=== PATIENT | female | born 1960 | race Caucasian/White ===

== ENCOUNTER → 2020-07-11 09:51 | Outpatient (CLI) | payer BC, SELFPAY ==
[2016-05-29 16:26] VITALS: BMI 34.0
[2020-07-11 10:59] LABS: Absolute Lymphocyte Count 1.12 X10^3/uL (0.83-4.51); Absolute Neutrophil Count 2.2 X10^3/uL (2.0-7.7); Basophil# 0.02 X10^3/uL; Basophil% 0.5 % (0-1); Eosinophil# 0.16 X10^3/uL; Eosinophils% 4.1 % (0-5); Hematocrit 43.3 % (37-47); Hemoglobin 13.9 g/dL (12.0-15.0); Lymphocyte # 1.12 X10^3/ul (4.0); Mean Corp Hgb Conc 32.1 g/dL (32-36); Mean Corpuscular Hgb 30.3 pg (27.0-32.0); Mean Corpuscular Volume 94.5 fL (81-99); Mean Platelet Vol. 9.8 fl (6.2-12.0); Monocyte# 0.37 X10^3/uL; Monocyte% 9.6 % (0-10); NRBC Flagged by Analyzer 0 % (0-5); Neutrophil # 2.18 X10^3/uL (2.7-7.7); Neutrophil % 56.5 % (47-70); Platelet Count 260 K/mm3 (150-450); RBC Distribution Width CV 13.7 % (11.6-14.6); RBC Distribution Width SD 48.1 fl (35.1-43.9); Red Blood Count 4.58 M/mm3 (4.2-5.4); White Blood Count 3.9 K/mm3 (4.4-11.0)
[2020-07-11 11:29] LABS: AST(SGOT) 16 U/L (15-37); Alanine Aminotransfer ALT/SGPT 20 U/L (13-56); Albumin, Serum 3.5 g/dL (3.2-5.0); Alkaline Phosphatase 77 U/L (45-117); Anion Gap 5 (5-15); BUN 14 mg/dL (7-18); BUN/Creat Ratio 15.9 RATIO (10-20); Calcium,Total 8.8 mg/dL (8.5-10.1); Chloride 108 mmol/L (98-107); Cholesterol 261 mg/dL (200); Creatinine, Serum 0.88 mg/dL (0.55-1.02); EST Glomerular Filtration Rate 70 mL/min (>60); Est Glom Filt Rate - Afr Amer 84 mL/min (>60); Ferritin 33 ng/mL (8-252); Globulin 3.6 g/dL (2.2-4.2); Glucose 92 mg/dL (74-106); High Density Lipoprotein 72 mg/dL; Iron 59 ug/dL (50-170); Iron Binding Capacity,Total 315 ug/dL (250-450); Potassium 3.9 mmol/L (3.5-5.1); Protein, Total 7.1 g/dL (6.4-8.2); Sodium Level 139 mmol/L (136-145); Thyroid Stim Hormone (TSH) 4.19 uIU/mL (0.358-3.74); Triglycerides 69 mg/dL; Very Low Density Lipoprotein 14 mg/dL (5-40)
[2020-07-13 09:32] LABS: Vitamin D,25 Hydroxy 39.7 ng/mL
== END ==
PROVIDERS: PCP Internal Medicine; Referring Provider Internal Medicine; Visit Provider Internal Medicine
DX: E55.9 Vitamin D deficiency, unspecified (principal); D50.9 Iron deficiency anemia, unspecified; E78.5 Hyperlipidemia, unspecified
CPT/HCPCS: 36415; 80053; 80061; 82306; 82728; 83540; 83550; 84443; 85025

== ENCOUNTER → 2020-07-16 15:45 | Outpatient (CLI) | payer BC, SELFPAY ==
[2016-05-29 16:26] VITALS: BMI 34.0
--- NOTE | 2020-07-16 15:53 | BI_ITS ---
MAMMOGRAPHY - BILATERAL SCREENING REASON FOR EXAM: Female, 60 years old. Routine annual screening examination. PERTINENT HISTORY: Non-contributory. TECHNIQUE: Digital bilateral breast skinny (3D mammographic acquisition) in the CC and MLO projections. 2-D mediolateral oblique (MLO) and craniocaudad (CC) views of both breasts were obtained. CAD: Full Field Digital Mammography with Computer Added Detection was performed. COMPARISON: Comparison is made with prior examination 02/16/2012. FINDINGS: Breast Composition: The breasts are heterogeneously dense, which may obscure small masses. There are no dominant masses or suspicious calcifications. Stable appearance of the bilateral axillary lymph nodes. No other significant abnormalities are identified. There has been no significant change since the prior study. BI/SCRN MAMM (CAD)W/SKINNY BILAT IMPRESSION: Stable bilateral screening mammogram. Yearly follow-up mammogram recommended. (A) ASSESSMENT CATEGORY: BIRADS Category 2: Benign. A letter regarding these results will be sent to the patient by the facility within 30 days. Approximately 10% of breast cancers are not detected by mammography. A normal mammogram should not delay biopsy of a clinically suspicious abnormality. [id number] Electronically Signed: Barron Crandall MD at 8:39 EDT , Service support ,
--- NOTE | 2020-07-16 15:55 | BD_ITS ---
STUDY: DUAL ENERGY X-RAY ABSORPTIOMETRY / DXA REASON FOR EXAM: Female, 60 years old. 627.8Menopausal post menopausal BONE DENSITY REASON FOR EXAM TECHNIQUE: Bone Mineral Density (BMD) measurements of lumbar spine and bilateral hips were obtained. COMPARISON: None. FINDINGS: Lumbar Spine (L1-L4): g/cm2 (1.108) / T-score (-0.6) / Z-score (0.6) Findings are suggestive of normal bone density with a low fracture risk. Left Femur Total: g/cm2 (0.914) / T-score (-0.7) / Z-score (0.2) Left Femoral Neck: g/cm2 (0.813) / T-score (-1.6) / Z-score (-0.4) Right Femur Total: g/cm2 (0.897) / T-score (-0.9) / Z-score (0.1) Right Femoral Neck: g/cm2 (0.779) / T-score (-1.9) / Z-score (-0.6) BD/Dexa Bone Density Study IMPRESSION: The patient is considered osteopenic as outlined below according to World Maximiliano Organization (WHO) criteria with a moderate fracture risk. Reference Information: The T-score is the number of standard deviations above or below the standard which is normal for young adults at their peak bone mineral density. The World Health Organization (WHO) interprets the T-scores as follows: Above -1 Normal bone density Between -1 and -2.5 Osteopenia Equal to / or below -2.5 Osteoporosis As a practical clinical guideline, osteopenia may be graded as follows: Mild -1 through -1.5 Moderate -1.6 through -2.0 Severe -2.1 through -2.4 The Z-score is the number of standard deviations above or below age-matched controls. A Z-score of less than -1.5 would be considered abnormal. References: 1. NIH Osteoporosis and Related Bone Diseases www osteo.org 2. International Society for Clinical Densitometry www iscd.org 3. National Osteoporosis Foundation www nof.org Electronically Signed: Barron Crandall MD at 13:12 EDT , Service support ,
== END ==
PROVIDERS: PCP Internal Medicine; Referring Provider Internal Medicine; Visit Provider Internal Medicine
DX: Z78.0 Asymptomatic menopausal state (principal); Z12.31 Encounter for screening mammogram for malignant neoplasm of breast
CPT/HCPCS: 77063; 77067; 77080

== ENCOUNTER 2020-12-30 05:49 | Day surgery (SDC) | payer BC, SELFPAY ==
[2020-12-30] VITALS (7 sets, daily range): BP systolic 103–141; BP diastolic 54–81; PULSE 64–84; RESP 16–18; TEMP 35.7–36.4; O2SAT 95–100; BMI 34.1
--- NOTE | 2020-12-30 | IMM_PTH ---
PATIENT: ROGER KITCHEN LOC: EN U#:[id number] AGE/SX: 60/F ROOM: RE12/30/[address]: Dr. Naima Iyer MD : 1960 BED: DIS: 12/30/2020 SPEC #: [id number] RECD: 12/30/20 14:00 STATUS: FABRICIO REQ #: [id number] YOLA: 12/30/20 00:[address]: Naima Iyer DEPT: IMMUNOHISTOCHEMISTRY RECD BY: Selina Sheppard ENTERED: 12/30/20 14:00 SP TYPE: IMMUNO OTHR DR: Dr. Leatha Dejesus, DO Tissues: Gastric mucous membrane Procedures: H Pylori (initial) PHYSICIAN & INSTITUTION [place] [address] SPECIMEN INFORMATION: Tissue Source: Antrum biopsy Clinical Info: Screening for colon cancer, GERD Specimen Number: [id number] CPT code: 65390 METHODOLOGY: Deparaffinized sections of prefer/formalin-fixed tissue or PAP/DQ stained slides are incubated with monoclonal/polyclonal antibodies/oligonucleotide probes. Localization is made via biotin free immunoperoxidase method. Appropriate controls are performed and reacted as expected. Results on target cell population are indicated in the following table: RESULTS: ANTIBODY / CLONE RESULT H Pylori (polyclonal) negative These tests were developed and their performance characteristics determined by [facility]. They may not have been cleared or approved by the U.S. Food and Drug Administration. The FDA has determined that such clearance or approval is not necessary. The above immunohistochemical/dualISH markers are ordered and reviewed by the Pathologist. INTERPRETATION: Gastric antrum, biopsy: Negative for Helicobacter pylori organisms. AM:leticia 12/31/20
[2020-12-30] MEDS: Lactated Ringers 1,000 ML 100 ML IV (06:15)
--- NOTE | 2020-12-30 06:31 | HP.PCM_ITS ---
History and Physical Date of Admission: 12/30/20 Date of Service: 12/22/20 Intake Vital Signs 12/22/20 14:09 Height 5 ft 5 in Weight: 168 lb 4 oz BMI 28.0 BP 143/83 H Blood Pressure Location Rt brachial Position Sitting Respiration 18 Pulse 63 Pulse Source Monitor Temp 97.6 F L Temp Source Temporal Pulse Oximetry (%) 96 Oxygen Delivery Method room air Intake Visit Reasons: CHANGE BOWEL HABITS, CSCOPE Chief Complaint: EGD/C-Scope Chiropractic Assistant Required: No Is patient in pain?: No Allergies Sulfa (Sulfonamide Antibiotics) Adverse Reaction (Verified 12/22/20 14:12) Upset Stomach Medications meclizine 25 mg PO TID PRN PRN #20 tab 05/29/16 [Rx Confirmed 12/22/20] ondansetron 8 mg PO Q8H PRN PRN #10 tab 05/29/16 [Rx Confirmed 12/22/20] PFSH Medical History (Updated 12/22/20 @ 14:[address] Naima Iyer MD) Blood in stool Depression with anxiety GERD (gastroesophageal reflux disease) Hemorrhoids Surgical History (Updated 12/22/20 @ 14:08 by Karin Del Valle) History of endometrial ablation History of tubal ligation Social History (Updated 12/22/20 @ 14:09 by Karin Del Valle) Smoking Status: Never smoker alcohol intake: never substance use type: does not use HPI HPI HPI: ROGER KITCHEN, is a 60 F who presents to the office today for EGD and colonoscopy. Patient states that she had a colonoscopy over 10 years ago was normal also had EGD at that time was diagnosed with reflux was previously on PPI patient states she came off her PPI as she started having issues with her creatinine labs unsure exactly how high or how much of a change there was. Patient decided to do the FODMAP diet also recently started at new herbal medication supposed to help with digestion. When patient started the new herbal she had diarrhea and some bright red blood per rectum patient does have hemorrhoids but denied them being irritated. Patient states she had 1 day of bright red blood per rectum. Patient is continued on this herbal medication and has had bowel movements daily does state that she feels like she could still go a little more and this was not the case prior to starting this herbal. Patient states that she would have increased acid reflux more recently along with some bad breath. Patient states she was previously checked for celiac she was also told that she had mass in her stomach during her last EGD that was biopsied and was okay. I do not currently have the last EGD report. Patient was curious if she could be tested for alpha galactosidase as her FODMAP diet suggests this could be in issue. ROS General General: Yes fatigue; No weight change, appetite, colon cancer, breast cancer or weakness HEENT HEENT: No difficulty swallowing, eye injury, eye surgery, swollen glands or hoarseness Endo Endocrine: No thyroid disease, diabetes mellitus, thyroid cancer, Hair loss, heat intolerance or cold intolerance Skin Skin: No rash or changing moles Breast Breast: No left breast lump, right breast lump, nipple discharge, breast pain, abnormal mammogram, abnormal US or breast enlargement Musc Musculoskeletal: No back problems, arthritis, rheumatoid arthritis, gout or joint pain Cardio Cardiovascular: No murmur, pacemaker, heart disease, atrial fibrillation, high blood pressure, heart attack, heart stent, palpitations, shortness of breat with exertion or chest pain Psych Psychiatric: Yes depression and anxiety; No hearing voices Resp Respiratory: No shortness of breath, No sleep apnea, No cough, No COPD, No asthma, No emphysema and No wheezing Gastro Gastrointestinal: Yes abdominal pain, Yes nausea or vomiting, No diarrhea, No constipation, Yes blood in stool, Yes acid reflux, Yes hemorrhoids, No ulcers, No gallbladder problem and No black,tarry stools George Hematologic: No blood thinners, No blood disorders, No bleeding, No anemia and No blood clots Neuro Neurologic: No system reviewed and no additional complaints, except as documented, No as per HPI, No abnormal gait, No abnormal hearing, No abnormal movements, No abnormal speech, No behavioral changes, No burning sensations, No confusion, No convulsions, No disequilibrium, No dizziness, No localized weak ness, No frequent falls, No headache(s), No lack of coordination, No loss of vision, No memory loss, No numbness, No other visual disturbances, No radicular pain, No restless legs, No sensory deficit, No syncope, No tingling, No tremor(s), No weakness and No other Exam Const General: cooperative, healthy appearing, comfortable and no acute distress Neck Neck: normal visual inspection Resp Effort & Inspection: normal respiratory effort Cardio Rate: regular rate GI Inspection: non-distended Palpation: soft, no guarding and nontender Skin General: no rashes or lesions noted Neuro General: patient oriented x3 Psych Affect: normal affect COVID (Procedure Consent) Procedure Criteria Procedure Criteria: Yes Elective The surgeon/proceduralist and patient have discussed in detail the risk of exposure to and/or potential harm posed by the COVID-19 virus with having a surgery/procedure at this time versus the risk of delaying the surgery/procedure. It is not possible to know either the risk of delaying the surgery or procedure or chance of getting an infection with perfect accuracy, but a joint decision was made between the patient and the surgeon/proceduralist to proceed at this time with the scheduled surgery/procedure as indicated on the consent form. Assessment and Plan Assessment and Plan (1) Screening for colon cancer: Status: Acute (2) GERD (gastroesophageal reflux disease): Status: Acute Plan - Dr. Naima Iyer MD: Did discuss with patient I am not sure if the herbal medication could be contributed to the feeling of not emptying completely has only started after taking this and she did initially have the diarrhea and bright red blood x1 day. Discussed with patient that I do not typically recommend herbals. Also discussed that if I did see gastritis or reflux I would be recommending a PPI again. I have discussed the above with the patient. I have offered the patient EGD and colonoscopy for evaluation. I have explained the risks/benefits of the procedure and described the procedure. I have discussed the risks with the patient, including but not limited to: infection, bleeding, perforation of the GI tract requiring emergency surgery, inability to complete the procedure, injury to any internal organs, complications of anesthesia, etc. - the patient understands and agrees to proceed. I have answered all the patient's questions to the patient's satisfaction and the patient has no further questions. The patient has been given instructions for the colon cleansing preparation. 1 day of clears, MiraLAX Dulcolax split prep. Addendum: Patient's last EGD report from Dr. Toney's office from 03/2013 showed chronic acid reflux symptoms and patient had significant esophagitis with ulcerations and erosions in the esophageal mucosa. Patient was placed back on her PPI twice daily at that time. Naima Iyer M.D. Pager: [phone] [facility] [address] [place] [address], [facility], [address] [place] [address] Office: [phone] Plan Details Other Orders: Orders: Colonoscopy Today EGD Today Coding Level of Care Code Off vis,new,level 3 Diagnoses Screening for colon cancer Z12.11 GERD (gastroesophageal reflux disease) K21.9 12/22/20 1555<Electronically signed by Naima Iyer MD>Date Naima Iyer MD
--- NOTE | 2020-12-30 07:30 | EGD_PTH ---
PATIENT: ROGER KITCHEN LOC: EN U#:[id number] AGE/SX: 60/F ROOM: RE12/30/[address]: Dr. Naima Iyer MD : 1960 BED: DIS: 12/30/2020 SPEC #: [id number] RECD: 12/30/20 11:11 STATUS: FABRICIO REQ #: [id number] YOLA: 12/30/20 07:[address]: Naima Iyer DEPT: SURGICAL PATHOLOGY RECD BY: Lori Ness ENTERED: 12/30/20 12:57 SP TYPE: EGD BIOPSY OT DR: Dr. Leatha Dejesus DO Tissues: A - Gastric mucous membrane B - Gastric mucous membrane C - Stomach, NOS Procedures: Surgery Specimen Level IV HEADER OPERATION: Colonoscopy, [place] [place] PRE-OP DIAGNOSIS: Screening for colon cancer, GERD TISSUE SUBMITTED: A. Antrum biopsy, B. Biopsy of gastric polyps, C. Biopsy of GE junction MICROSCOPIC DIAGNOSIS A. Gastric antrum, biopsy: Chronic gastritis B. Gastric polyps, biopsy: Fundic gland polyps. C. GE junction, biopsy: Mild chronic inflammation. Focal changes of reflux. No evidence of goblet cell metaplasia. AM:ana 12/31/20 COMMENT A. Immunohistochemistry for H. pylori ([id number]) will be reported separately. C.AB/PAS stain with matched control is negative for goblet cells. MICROSCOPIC DESCRIPTION Slides are reviewed. GROSS DESCRIPTION A. Received is one container labeled with the patient name and designated antrum biopsy. The specimen consists of one irregular fragment of light liao soft tissue that measures 0.3 x 0.2 x 0.1cm. The specimen is totally submitted in one cassette. B. Received is one container labeled with the patient name and designated gastric polyps. The specimen consists of multiple irregular fragments of light liao soft tissue that together measure 1.0 x 0.5 x 0.1 cm. The specimen is totally submitted in one cassette. C. Received is one container labeled with the patient name and designated GE junction. The specimen consists of multiple irregular fragments of light liao soft tissue that together measure 0.8 x 0.5 x 0.1cm. The specimen is totally submitted in one cassette. /AM:am 12/30/20 TC:3 CPT:34430k8, 43048
--- NOTE | 2020-12-30 07:43 | OP.EGD_ITS ---
Patient Name: Rosa Llanos Procedure Date: 12/30/2020 6:56 AM Date of : 1960 Age: 60 Procedure: Upper GI endoscopy Indications: Gastro-esophageal reflux disease Providers: Naima Iyer MD Medicines: Monitored Anesthesia Care Patient Profile: This is a 60 year old female. Complications: No immediate complications. Procedure: Pre-Anesthesia Assessment: - Prior to the procedure, a History and Physical was performed, and patient medications and allergies were reviewed. The patient's tolerance of previous anesthesia was also reviewed. The risks and benefits of the procedure and the sedation options and risks were discussed with the patient. All questions were answered, and informed consent was obtained. Prior Anticoagulants: The patient has taken no previous anticoagulant or antiplatelet agents. ASA Grade Assessment: Per anesthesia. After reviewing the risks and benefits, the patient was deemed in satisfactory condition to undergo the procedure. After obtaining informed consent, the endoscope was passed under direct vision. Throughout the procedure, the patient's blood pressure, pulse, and oxygen saturations were monitored continuously. The Endoscope was introduced through the mouth, and advanced to the second part of duodenum. The upper GI endoscopy was accomplished without difficulty. The patient tolerated the procedure well. Scope In: 7:06:28 AM Scope Out: 7:14:13 AM Total Procedure Duration Time 0 hours 7 minutes 45 seconds Findings: The Z-line was irregular and was found 33 cm from the incisors. Three tongues of salmon-colored mucosa were present from 33 to 36 cm. Ulcerations were present at 33 cm. The maximum longitudinal extent of these esophageal mucosal changes was 1 cm in length. Biopsies were taken with a cold forceps for histology. Moderate inflammation was found in the gastric antrum. Biopsies were taken with a cold forceps for histology. Biopsies were taken with a cold forceps for Helicobacter pylori cultures. Multiple less than 5 mm sessile polyps with no bleeding and no stigmata of recent bleeding were found in the gastric body. The polyp was removed with a cold biopsy forceps. Resection and retrieval were complete. The examined duodenum was normal. Impression: - Z-line irregular, 33 cm from the incisors. - Colbert-colored mucosa. Biopsied. - Gastritis. Biopsied. - Multiple gastric polyps. Resected and retrieved. - Normal examined duodenum. Recommendation: - Await pathology results. - Discharge patient to home. - Resume previous diet. - Use Protonix (pantoprazole) 40 mg PO daily. - Continue present medications. Procedure Code(s): --- Professional --- 59635, PT, Esophagogastroduodenoscopy, flexible, transoral; with biopsy, single or multiple Diagnosis Code(s): --- Professional --- K22.8, Other specified diseases of esophagus K29.70, Gastritis, unspecified, without bleeding K31.7, Polyp of stomach and duodenum K21.9, Gastro-esophageal reflux disease without esophagitis CPT copyright 2017 [employer]. All rights reserved. The codes documented in this report are preliminary and upon nurse review may be revised to meet current compliance requirements. MD Naima Browne MD 12/30/2020 7:42:14 AM This report has been signed electronically. Number of Addenda: 0 Note Initiated On: 12/30/2020 6:56 AM
--- NOTE | 2020-12-30 07:43 | OP.CCLET_ITS ---
12/30/2020 Leatha Dejesus [address] [place] [address] Re : Upper GI endoscopy procedure for Rosa Llanos Dear Dr. Dejesus This procedure was performed on Wednesday, December 30, 2020. My impressions and recommendations are as follows: Impressions : - Z-line irregular, 33 cm from the incisors. - Capay-colored mucosa. Biopsied. - Gastritis. Biopsied. - Multiple gastric polyps. Resected and retrieved. - Normal examined duodenum. Recommendations : - Await pathology results. - Discharge patient to home. - Resume previous diet. - Use Protonix (pantoprazole) 40 mg PO daily. - Continue present medications. My findings are described in the full procedure note, which is enclosed. If I can be of further assistance, please feel free to contact me at Doctor phone number(s): , Work: . Sincerely, MD Naima Browne MD 12/30/2020 7:42:14 AM This report has been signed electronically.
--- NOTE | 2020-12-30 07:49 | OP.COLON_ITS ---
Patient Name: Rosa Llanos Procedure Date: 12/30/2020 7:15 AM Date of : 1960 Age: 60 Procedure: Colonoscopy Indications: Screening for colorectal malignant neoplasm Providers: Naima Iyer MD Medicines: Monitored Anesthesia Care Patient Profile: Last Colonoscopy: 10 years ago. This is a 60 year old female. Complications: No immediate complications. Procedure: Pre-Anesthesia Assessment: - Prior to the procedure, a History and Physical was performed, and patient medications and allergies were reviewed. The patient's tolerance of previous anesthesia was also reviewed. The risks and benefits of the procedure and the sedation options and risks were discussed with the patient. All questions were answered, and informed consent was obtained. Prior Anticoagulants: The patient has taken no previous anticoagulant or antiplatelet agents. ASA Grade Assessment: Per anesthesia. After reviewing the risks and benefits, the patient was deemed in satisfactory condition to undergo the procedure. After I obtained informed consent, the scope was passed under direct vision. Throughout the procedure, the patient's blood pressure, pulse, and oxygen saturations were monitored continuously. The Colonoscope was introduced through the anus and advanced to the cecum, identified by the ileocecal valve. The colonoscopy was performed without difficulty. The patient tolerated the procedure well. The quality of the bowel preparation was good except the descending colon was fair. Scope In: 7:16:29 AM Scope Withdrawal Time 0 hours 9 minutes 38 seconds Scope Out: 7:34:44 AM Total Procedure Duration Time 0 hours 18 minutes 15 seconds Findings: Hemorrhoids were found on perianal exam. Multiple small-mouthed diverticula were found in the sigmoid colon, descending colon, transverse colon and ascending colon. External and internal hemorrhoids were found. The hemorrhoids were Grade I (internal hemorrhoids that do not prolapse). Impression: - Hemorrhoids found on perianal exam. - Diverticulosis in the sigmoid colon, in the descending colon, in the transverse colon and in the ascending colon. - External and internal hemorrhoids. - No specimens collected. Recommendation: - Repeat colonoscopy in 8 years for screening purposes. - Continue present medications. Procedure Code(s): --- Professional --- 56549, PT, Colonoscopy, flexible; diagnostic, including collection of specimen(s) by brushing or washing, when performed (separate procedure) Diagnosis Code(s): --- Professional --- Z12.11, Encounter for screening for malignant neoplasm of colon K64.0, First degree hemorrhoids K57.30, Diverticulosis of large intestine without perforation or abscess without bleeding CPT copyright 2017 [employer]. All rights reserved. The codes documented in this report are preliminary and upon label coder review may be revised to meet current compliance requirements. MD Naima Browne MD 12/30/2020 7:49:06 AM This report has been signed electronically. Number of Addenda: 0 Note Initiated On: 12/30/2020 7:15 AM
--- NOTE | 2020-12-30 07:50 | OP.CCLET_ITS ---
12/30/2020 Leatha Dejesus [address] [place] [address] Re : Colonoscopy procedure for Rosa Viet Dear Dr. Dejesus This procedure was performed on Wednesday, December 30, 2020. My impressions and recommendations are as follows: Impressions : - Hemorrhoids found on perianal exam. - Diverticulosis in the sigmoid colon, in the descending colon, in the transverse colon and in the ascending colon. - External and internal hemorrhoids. - No specimens collected. Recommendations : - Repeat colonoscopy in 8 years for screening purposes. - Continue present medications. My findings are described in the full procedure note, which is enclosed. If I can be of further assistance, please feel free to contact me at Doctor phone number(s): , Work: . Sincerely, MD Naima Browne MD 12/30/2020 7:49:06 AM This report has been signed electronically.
== END 2020-12-30 08:37 | disposition home or self-care (01) ==
LOC: EN 05:51 → AC 05:51
PROVIDERS: PCP Internal Medicine; Referring Provider Internal Medicine; Visit Provider Surgery
PROC: 0DJD8ZZ Inspection of Lower Intestinal Tract, Via Natural or Artificial Opening Endoscopic (ICD-10-PCS; CPT 45378; principal; 2020-12-30 07:25)
DX: Z12.11 Encounter for screening for malignant neoplasm of colon (principal); K64.0 First degree hemorrhoids; K57.30 Diverticulosis of large intestine without perforation or abscess without bleeding; K22.8 Other specified diseases of esophagus; K29.50 Unspecified chronic gastritis without bleeding; K31.7 Polyp of stomach and duodenum; K21.9 Gastro-esophageal reflux disease without esophagitis
CPT/HCPCS: 43239; 45378; 87426; 88305; 88342; J7120; J2405

== ENCOUNTER → 2024-01-13 | Outpatient (CLI) | payer BC, SELFPAY ==
[2024-01-13 11:09] LABS: Absolute Lymphocyte Count 1.31 X10^3/uL (0.83-4.51); Absolute Neutrophil Count 2.3 X10^3/uL (2.0-7.7); Basophil# 0.03 X10^3/uL; Basophil% 0.7 % (0-1); Eosinophil# 0.15 X10^3/uL; Eosinophils% 3.6 % (0-5); Hematocrit 41.5 % (37-47); Hemoglobin 13.5 g/dL (12.0-15.0); Lymphocyte # 1.31 X10^3/ul (0.83-4.51); Lymphocyte % 31.7 % (19-41); Mean Corp Hgb Conc 32.5 g/dL (32-36); Mean Corpuscular Hgb 31.8 pg (27.0-32.0); Mean Corpuscular Volume 97.6 fL (81-99); Monocyte# 0.37 X10^3/uL; NRBC Flagged by Analyzer 0 % (0-5); Neutrophil # 2.26 X10^3/uL (2.7-7.7); Neutrophil % 54.8 % (47-70); Platelet Count 228 K/mm3 (150-450); RBC Distribution Width CV 13.7 % (11.6-14.6); RBC Distribution Width SD 49.1 fl (35.1-43.9); Red Blood Count 4.25 M/mm3 (4.2-5.4); White Blood Count 4.1 K/mm3 (4.4-11.0)
[2024-01-13 11:40] LABS: ALB/GLOB Ratio 1.1 RATIO (0.9-2.4); AST(SGOT) 17 U/L (15-37); Alanine Aminotransfer ALT/SGPT 18 U/L (13-56); Albumin, Serum 3.7 g/dL (3.2-5.0); Alkaline Phosphatase 96 U/L (45-117); Anion Gap 5 (5-15); BUN 14 mg/dL (7-18); BUN/Creat Ratio 13.6 RATIO (10-20); Calcium,Total 9.4 mg/dL (8.5-10.1); Chloride 107 mmol/L (98-107); Cholesterol 236 mg/dL (200); Creatinine, Serum 1.03 mg/dL (0.55-1.02); EST Glomerular Filtration Rate 57 mL/min (>60); Est Glom Filt Rate - Afr Amer 69 mL/min (>60); Ferritin 98 ng/mL (8-252); Globulin 3.3 g/dL (2.2-4.2); Glucose 97 mg/dL (74-106); High Density Lipoprotein 65 mg/dL; Iron 68 ug/dL (50-170); Iron Binding Capacity,Total 291 ug/dL (250-450); PERCENT IRON SATURATION 23.4 % (15.0-55.0); Potassium 4.3 mmol/L (3.5-5.1); Sodium Level 139 mmol/L (136-145); Triglycerides 70 mg/dL; Very Low Density Lipoprotein 14 mg/dL (5-40)
[2024-01-15 08:22] LABS: Vitamin D,25 Hydroxy 63.3 ng/mL
== END | disposition home or self-care (01) ==
LOC: LAB 10:46
PROVIDERS: PCP Internal Medicine; Referring Provider Internal Medicine; Visit Provider Internal Medicine
DX: D50.9 Iron deficiency anemia, unspecified (principal); E55.9 Vitamin D deficiency, unspecified; E78.5 Hyperlipidemia, unspecified
CPT/HCPCS: 36415; 80053; 80061; 82306; 82728; 83540; 83550; 85025

== ENCOUNTER 2024-03-06 07:18 | Day surgery (SDC) | payer BC, SELFPAY ==
[2024-03-06] VITALS (8 sets, daily range): BP systolic 93–145; BP diastolic 60–81; PULSE 70–80; RESP 16; TEMP 35.8–36.2; O2SAT 90–100; BMI 32.4
--- NOTE | 2024-03-06 07:34 | PCM.PRE.AN2 ---
ASA Classification* ASA Classification ASA Classification: 2 Assessment & Plan Anesthesia* Anesthesia Assessment Anesthesia Assessment: Discussed sedation and/or anesthesia options, risks, benefits, and alternatives with patient/parents/legal guardian/POA. Questions invited. The patient/parents/legal guardian/POA seems to understand and agrees to proceed with anesthesia plan. Reviewed the physical assessment, medical history, allergy history and patient home medications list prior to surgery/procedure/anesthetic and documented any changes. Performed airway and anesthesia risk assessments. Anesthesia Type Anesthesia Type: MAC Anesthesia Focused Assessment* Temperature: 97.1 F Pulse Rate: 70 Blood Pressure: 145/81 Respiratory Rate: 16 Pulse Ox: 100 Airway Assessment Mouth opens: >3 cm Mallampati Score: II Focused Labs Anesthesia Preop lab: CBC WBC 4.1 K/mm3 (4.4-11.0) L 01/13/24 10:55 RBC 4.25 M/mm3 (4.2-5.4) 01/13/24 10:55 Hgb 13.5 g/dL (12.0-15.0) 01/13/24 10:55 Hct 41.5 % (37-47) 01/13/24 10:55 Plt Count 228 K/mm3 (150-450) 01/13/24 10:55 CHEMISTRY Potassium 4.3 mmol/L (3.5-5.1) 01/13/24 10:55 Sodium 139 mmol/L (136-145) 01/13/24 10:55 BUN 14 mg/dL (7-18) 01/13/24 10:55 Creatinine 1.03 mg/dL (0.55-1.02) H 01/13/24 10:55 Glucose 97 mg/dL (74-106) 01/13/24 10:55 TSH 4.19 uIU/mL (0.358-3.74) H 07/11/20 10:05 COAG Pre-Assessment Diagnosis/Proposed Procedure Planned Operative Procedure(s): EGD Anesthesia History 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 When Was Last Pacemaker Check QUESTION #4 FULL TEXT: You/Your Family Experience fever (hyperthermia) with Anesthesia Last Oral Intake Last Oral intake: Last Oral Intake NPO since 06:00 03/06/24 07:31 Meds taken in AM with sips of water? 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 Female Yes 03/04/24 10:08 HX of Motion Sickness Yes 03/04/24 10:08 HX of N/V After Surgery No 03/04/24 10:08 Non-Smoker Yes 03/04/24 10:08 Duration of Surgery greater No 03/04/24 10:08 than 60 minutes Number of Risk Factors 3 03/04/24 10:08 PONV Score Moderate Risk 03/04/24 10:08 Height & Weight Height & Weight: Anesthesia: Height & Weight Height 5 ft 03/06/24 07:31 Weight: 75.296 kg 03/06/24 07:31 Body Mass Index (BMI) 32.4 03/06/24 07:31 Respiratory Assessment Respiratory Assessment - collections technician: Respiratory Tract Infection Hx - collections technician Hx Respiratory Tract Infection No 03/04/24 10:08 STOP Sleep Apnea STOP Sleep Apnea - collections technician: STOP Sleep Apnea - collections technician Hx Hypertension No 03/04/24 10:08 Hx Sleep Apnea No 03/04/24 10:08 CPAP BIPAP Do you snore loudly (louder Yes 03/04/24 10:08 than talking or can be heard Do you often feel tired/ No 03/04/24 10:08 fatigued/ sleepy during daytime? Has anyone observed you stop No 03/04/24 10:08 breathing during sleep? STOP Results Negative 03/04/24 10:08 QUESTION #5 FULL TEXT : Do you snore loudly (louder than talking or can be heard through closed doors)? 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 Specify any problems Hx of Preganancy in last 3 No 03/04/24 10:08 Months Nurse Filling Out Transfusion DSCHRIBER 03/04/24 10:08 & Questions: Date: 03/04/24 03/04/24 10:08 Time: 10:10 03/04/24 10:08 Patient unable to answer at this time (ie. confused, unrespo /Reproduction History /Reproductive History - collections technician: /Reproductive Hx- collections technician Hx Now No 03/04/24 10:08 Gestational Age (in weeks): EDC: Hx Hx Para Hx Section SAB No 03/04/24 10:08 PFSH Medical History Anemia Migraine headache History of ulceration History of pain when walking Hx of gastritis Wears glasses Anxiety High cholesterol Back pain Dietary restriction Gastric reflux Non-smoker History of edema Blood in stool Hemorrhoids Depression with anxiety GERD (gastroesophageal reflux disease) Home Medications ?Medication ?Instructions ?Recorded ?Last Taken ?Type ascorbic acid 125 mg-collagen, 1 cap PO DAILY 12/29/20 Unknown History hydrolyzed 740 mg capsule (Collagen Plus Vitamin C) cholecalciferol (vitamin D3) 125 125 mcg PO DAILY 12/29/20 Unknown History mcg (5,000 unit) tablet (Vitamin D3) digestive enzymes 1 cap PO DAILY 12/29/20 Unknown History magnesium 100 mg capsule 100 mg PO DAILY 12/29/20 Unknown History zinc 25 mg tablet 30 mg PO DAILY 12/29/20 Unknown History omeprazole 40 mg capsule,delayed 40 mg PO QDAY #30 caps 12/29/23 03/06/24 Rx release BURBERINE 2 - 3 cap PO DAILY 03/04/24 Unknown History Lactobacillus acidophilus 250 500 mmu cells PO DAILY 03/04/24 Unknown History million cell capsule (Probiotic Acidophilus) Allergy/AdvReac Type Severity Reaction Status Date / Time Sulfa (Sulfonamide AdvReac Upset Verified 03/06/24 07:30 Antibiotics) Stomach Surgical History History of esophagogastroduodenoscopy (EGD) History of endometrial ablation History of tubal ligation Social History Smoking Status: Never smoker alcohol intake: never substance use type: does not use Review of Systems (Anesthesia) ROS Narrative System reviewed and no additional complaints, except as documented.
--- NOTE | 2024-03-06 07:40 | HP.PCM_ITS ---
HPI - General General Date of Service: 03/06/24 HPI Narrative ROGER KITCHEN, is a 63 F who presents for an EGD. Patient did change to omeprazole since the last office visit. Patient states her symptoms are much improved does states she does have some discomfort with certain foods. 12/29/23 office visit HPI HPI: 63-year-old female presents due to GERD. Patient states she has noticed her breath being more foul for the last year. Patient's PCP did try a new GERD medication Voquezna however patient states she had increased constipation from this and stopped and did go back to pantoprazole. Patient denies any change with her breath on the new medication that she was on for about a week. Patient denies any epigastric pain or nausea. Patient's last EGD and colonoscopy was 12/2020. Patient has chronic gastritis at that time per biopsy and inflammation of the GE junction and fundic gland polyps on the EGD. [facility] Medical History Anemia Migraine headache History of ulceration History of pain when walking Hx of gastritis Wears glasses Anxiety High cholesterol Back pain Dietary restriction Gastric reflux Non-smoker History of edema Blood in stool Hemorrhoids Depression with anxiety GERD (gastroesophageal reflux disease) Home Medications ?Medication ?Instructions ?Recorded ?Last Taken ?Type ascorbic acid 125 mg-collagen, 1 cap PO DAILY 12/29/20 Unknown History hydrolyzed 740 mg capsule (Collagen Plus Vitamin C) cholecalciferol (vitamin D3) 125 125 mcg PO DAILY 12/29/20 Unknown History mcg (5,000 unit) tablet (Vitamin D3) digestive enzymes 1 cap PO DAILY 12/29/20 Unknown History magnesium 100 mg capsule 100 mg PO DAILY 12/29/20 Unknown History zinc 25 mg tablet 30 mg PO DAILY 12/29/20 Unknown History omeprazole 40 mg capsule,delayed 40 mg PO QDAY #30 caps 12/29/23 03/06/24 Rx release BURBERINE 2 - 3 cap PO DAILY 03/04/24 Unknown History Lactobacillus acidophilus 250 500 mmu cells PO DAILY 03/04/24 Unknown History million cell capsule (Probiotic Acidophilus) Allergy/AdvReac Type Severity Reaction Status Date / Time Sulfa (Sulfonamide AdvReac Upset Verified 03/06/24 07:30 Antibiotics) Stomach Surgical History History of esophagogastroduodenoscopy (EGD) History of endometrial ablation History of tubal ligation Social History Smoking Status: Never smoker alcohol intake: never substance use type: does not use Past Medical/Surgical History Planned Operation Planned Operative Procedure(s): EGD Previous Hospitalizations/Surgeries HX Hospitalizations: No Any Problems With Anesthesia: No You/Your Family Experience Fever (Hyperthermia) With Anes: No Cholinesterase deficiency: No Cardiovascular Hx Hypertension: No Respiratory Hx Sleep Apnea: No Hx Respiratory Tract Infection/Cold (presently): No Do You Snore Loudly (louder than talking or can be heard): Yes Do You Often Feel Tired/ Fatigued/ Sleepy Dring Daytime?: No Has Anyone Observed You Stop Breathing During Sleep?: No Result (for STOP score): Negative Smoking Status: Never smoker Neurological Does patient have nerve stimulator: No Reproduction : No Miscellaneous Recent Exposure to Contagious Disease: No Allergies Sulfa (Sulfonamide Antibiotics) Adverse Reaction (Verified 03/06/24 07:30) Upset Stomach Discharge Is Pt Admitted From a Long Term, or a Fdc: No After D/C, Where Do you Plan to Go: Return Home Vital Signs Vital Signs Vital Signs: 03/06/24 07:31 03/06/24 07:31 03/06/24 07:35 Temperature 97.1 F L 97.1 F L Temperature Source Temporal Pulse Rate 70 70 Respiratory Rate 16 16 Respiratory Pattern Normal Blood Pressure 145/81 H 145/81 H Blood Pressure Mean 102 Blood Pressure Source Monitor Blood Pressure Position Semi-Fowlers Blood Pressure Location Right Arm Pulse Ox 100 100 Oxygen Delivery Method Room Air Weight Weight: 166 lb Body Mass Index (BMI) 32.4 Physical Exam Const alert, oriented x3 and no apparent distress HEENT normocephalic and head/scalp atraumatic Resp normal respiratory effort Cardio regular rate GI soft to palpation and non-tender; Negative for non-distended Palpation: Negative for guarding Extremity no clubbing, cyanosis or edema Skin no rashes or lesions noted Neuro CN's II-XII intact bilaterally Psych mental status grossly normal Assessment & Plan Assessment/Plan (1) GERD (gastroesophageal reflux disease): Surgery Risks - Colonoscopy I discussed with the patient the risks of the procedure: Yes Risks Include but are not Limited To: Plan for an EGD risks include but are not limited to: Bleeding, perforation requiring further surgery
--- NOTE | 2024-03-06 08:22 | OP.CCLET_ITS ---
03/06/2024 Leatha Dejesus [address] [place] [address] Re : Upper GI endoscopy procedure for Rosa Llanos Dear Dr. Dejesus This procedure was performed on Wednesday, March 06, 2024. My impressions and recommendations are as follows: Impressions : - LA Grade D esophagitis with no bleeding. Biopsied. - Erythematous mucosa in the antrum. Biopsied. - Multiple gastric polyps. Resected and retrieved. - Normal examined duodenum. Recommendations : - Discharge patient to home. - Resume previous diet. - Continue present medications. - Await pathology results. - Use sucralfate tablets 1 gram PO QID for 1 month. My findings are described in the full procedure note, which is enclosed. If I can be of further assistance, please feel free to contact me at Doctor phone number(s): , Work: . Sincerely, MD Naima Browne MD 03/06/2024 8:21:16 AM This report has been signed electronically.
--- NOTE | 2024-03-06 08:22 | OP.EGD_ITS ---
Patient Name: Rosa Lalnos Procedure Date: 03/06/2024 7:43 AM Date of : 1960 Age: 63 Procedure: Upper GI endoscopy Indications: Heartburn Providers: Naima Iyer MD Referring MD: Leatha Dejesus Medicines: Monitored Anesthesia Care Patient Profile: This is a 63 year old female. Complications: No immediate complications. Procedure: Pre-Anesthesia Assessment: - Prior to the procedure, a History and Physical was performed, and patient medications and allergies were reviewed. The patient's tolerance of previous anesthesia was also reviewed. The risks and benefits of the procedure and the sedation options and risks were discussed with the patient. All questions were answered, and informed consent was obtained. Prior Anticoagulants: The patient has taken no anticoagulant or antiplatelet agents. ASA Grade Assessment: Per anesthesia. After reviewing the risks and benefits, the patient was deemed in satisfactory condition to undergo the procedure. After obtaining informed consent, the endoscope was passed under direct vision. Throughout the procedure, the patient's blood pressure, pulse, and oxygen saturations were monitored continuously. The gastroscope was introduced through the mouth, and advanced to the second part of duodenum. The upper GI endoscopy was accomplished without difficulty. The patient tolerated the procedure well. Scope In: 8:05:43 AM Scope Out: 8:14:48 AM Total Procedure Duration Time 0 hours 9 minutes 5 seconds Findings: LA Grade D (one or more mucosal breaks involving at least 75% of esophageal circumference) esophagitis with no bleeding was found 32 to 35 cm from the incisors. Biopsies were taken with a cold forceps for histology. Striped moderately erythematous mucosa without bleeding was found in the gastric antrum. Biopsies were taken with a cold forceps for histology. Biopsies were taken with a cold forceps for Helicobacter pylori cultures. Multiple medium semi-pedunculated polyps with no bleeding and no stigmata of recent bleeding were found in the gastric body. The polyp was removed with a hot snare. Resection and retrieval were complete using a cap. The cardia and gastric fundus were normal on retroflexion. The examined duodenum was normal. Impression: - LA Grade D esophagitis with no bleeding. Biopsied. - Erythematous mucosa in the antrum. Biopsied. - Multiple gastric polyps. Resected and retrieved. - Normal examined duodenum. Recommendation: - Discharge patient to home. - Resume previous diet. - Continue present medications. - Await pathology results. - Use sucralfate tablets 1 gram PO QID for 1 month. Procedure Code(s): --- Professional --- 12614, Esophagogastroduodenoscopy, flexible, transoral; with removal of tumor(s), polyp(s), or other lesion(s) by snare technique Diagnosis Code(s): --- Professional --- K20.90, Esophagitis, unspecified without bleeding K31.89, Other diseases of stomach and duodenum K31.7, Polyp of stomach and duodenum R12, Heartburn CPT copyright 2021 [employer]. All rights reserved. The codes documented in this report are preliminary and upon adolescent coordinator review may be revised to meet current compliance requirements. MD Naima Browne MD 03/06/2024 8:21:16 AM This report has been signed electronically. Number of Addenda: 0 Note Initiated On: 03/06/2024 7:43 AM
--- NOTE | 2024-03-06 08:23 | PCM.POST.ANE ---
Anesthesia: Postop Eval I Current Vital Signs Temperature: 97 F Pulse Rate: 79 Blood Pressure: 105/62 Respiratory Rate: 16 Pulse Ox: 92 Oxygen Delivery Method: Room Air Assessment Airway patent: Yes Spontaneous unlabored respirations: Yes Mental status: Asleep nausea: No Vomiting: No Anesthesia Complication: No Fluid Hydration Crystalloid volume administer (ml): 40 Total IV fluid infused: 30 Progress Note Anesthesia document: Postop Eval 1 completed: Yes
--- NOTE | 2024-03-06 08:45 | IMM_PTH ---
PATIENT: ROGER KITCHEN LOC: EN U#:[id number] AGE/SX: 63/F ROOM: RE03/06/[address]: Dr. Naima Iyer MD : 1960 BED: DIS: 03/06/2024 SPEC #: [id number] RECD: 03/06/24 13:21 STATUS: FABRICIO REQ #: [id number] YOLA: 03/06/24 08:[address]: Naima Iyer DEPT: IMMUNOHISTOCHEMISTRY RECD BY: Martin Watt ENTERED: 03/06/24 13:22 SP TYPE: IMMUNO OTHR DR: Dr. Leatha Dejesus, DO Tissues: A - Gastric mucous membrane Procedures: H Pylori (initial) PHYSICIAN & INSTITUTION [place] [address] SPECIMEN INFORMATION: Tissue Source: A- Antrum biopsy, C- Gastroesophageal junction biopsy Clinical Info: GERD Specimen Number: [id number] A, C CPT code: 58016i3,61707 METHODOLOGY: Deparaffinized sections of prefer/formalin-fixed tissue or PAP/DQ stained slides are incubated with monoclonal/polyclonal antibodies/oligonucleotide probes. Localization is made via biotin free immunoperoxidase method. Appropriate controls are performed and reacted as expected. Results on target cell population are indicated in the following table: RESULTS: ANTIBODY / CLONE RESULT Block A H Pylori (polyclonal) negative Block C P53 (DO-7) negative (null pattern) Ki-67 (30-9) positive, low These tests were developed and their performance characteristics determined by [facility]. They may not have been cleared or approved by the U.S. Food and Drug Administration. The FDA has determined that such clearance or approval is not necessary. The above immunohistochemical/dualISH markers are ordered and reviewed by the Pathologist. INTERPRETATION: A. Antrum, biopsy: Negative for Helicobacter pylori organisms. C. Gastroesophageal junction, biopsy: Negative for dysplasia. SJ. 03/08/2024
--- NOTE | 2024-03-06 08:45 | EGD_PTH ---
PATIENT: ROGER KITCHEN LOC: EN U#:[id number] AGE/SX: 63/F ROOM: RE03/06/[address]: Dr. Naima Iyer MD : 1960 BED: DIS: 03/06/2024 SPEC #: [id number] RECD: 03/06/24 11:36 STATUS: FABRICIO REKartik #: [id number] YOLA: 03/06/24 08:[address]: Naima Iyer DEPT: SURGICAL PATHOLOGY RECD BY: Selina Sheppard ENTERED: 03/06/24 11:54 SP TYPE: EGD BIOPSY MIGUELINA DR: Dr. Leatha Dejesus DO Tissues: A - Gastric mucous membrane B - Gastric mucous membrane C - Esophagus, NOS Procedures: Special Stain Group I Surgery Specimen Level IV Alcian Blue/PAS (control) HEADER OPERATION: EGD with biopsy and polypectomy PRE-OP DIAGNOSIS: GERD TISSUE SUBMITTED: A- Antrum biopsy, B- Gastric polyp, C- Gastroesophageal junction biopsy MICROSCOPIC DIAGNOSIS A. Antrum biopsy: Mild gastritis. See microscopic description and comment. B. Gastric polyp, polypectomy: Fragments of fundic gland polyp. Chronic inflammation. C. Gastroesophageal junction, biopsy: Fragments of gastroesophageal mucosa with focal intestinal metaplasia (goblet cell metaplasia), consistent with Beauchamp's esophagus. Chronic inflammation. Negative for dysplasia. See comment. 03/07/2024 COMMENT A. The results of immunohistochemistry for Helicobacter pylori will be reported separately ([id number]). C. Alcian blue/PAS stain with matched control is used in the evaluation of the specimen. Immunohistochemistry (24-) for P53 and Ki-67 will be performed and results will be reported separately. MICROSCOPIC DESCRIPTION Slides are reviewed. A. The specimen shows fragments of gastric mucosa with chronic inflammatory cell infiltrates in the lamina propria consisting of lymphocytes and plasma cells, consistent with mild chronic gastritis. Mucosal congestion and hemorrhage are also noted. GROSS DESCRIPTION A. Received in fixative is one container labeled with the patient's name and designated Antrum biopsy. The specimen consists of one irregular fragment of light liao soft tissue that measures 0.3 x 0.3 x 0.1 cm. The specimen is totally submitted in one cassette. B. Received in fixative is one container labeled with the patient's name and designated Gastric polyps. The specimen consists of two liao-pink polyps measuring 0.8 x 0.5 x 0.5cm and 0.6 x 0.5 x 0.5cm. Both polyps are bisected. The entire specimen is submitted in one cassette. C. Received in fixative is one container labeled with the patient's name and designated GE junction biopsy. The specimen consists of multiple irregular fragments of light liao soft tissue that in aggregate measure 1.0 x 0.3 x 0.1 cm. The specimen is totally submitted in one cassette. SJ 03/06/2024 TC:5 CPT:00821b1, [id number]
--- NOTE | 2024-03-06 09:23 | PCM.POSTANE2 ---
Anesthesia Postop Eval I Sum Postop Eval Completion status Anesthesia document: Postop Eval 1 completed: Yes Anesthesia Postop Eval I Summary Anesthesia Postop Eval I Summary: Anesthesia Postop Eval I: Assessment Summary Airway patent Yes 03/06/24 08:24 [email or web address] Spontaneous unlabored Yes 03/06/24 08:24 [email or web address] respirations Mental status Asleep 03/06/24 08:24 [email or web address] nausea No 03/06/24 08:24 [email or web address] Vomiting No 03/06/24 08:24 [email or web address] Anesthesia Postop Eval I: Fluid Summary Crystalloid volume administer 40 03/06/24 08:24 [email or web address] (ml) Colloids volume administered ( ml) Blood Product volume administered (ml) Total IV fluid infused 30 03/06/24 08:24 [email or web address] Anesthesia Postop Eval I: Summary Notes Anesthesia Complication No 03/06/24 08:24 [email or web address] Anesthesia Complication Comment: Post-operative progress note Anesthesia: Postop Eval II Evaluation Mental status: Awake Pain Level: 0 nausea: No Vomiting: No
== END 2024-03-06 09:29 | disposition home or self-care (01) ==
LOC: EN 07:18 → AC 07:19
PROVIDERS: PCP Internal Medicine; Referring Provider Internal Medicine; Visit Provider Surgery
PROC: 0DJ08ZZ Inspection of Upper Intestinal Tract, Via Natural or Artificial Opening Endoscopic (ICD-10-PCS; CPT 43235; principal; 2024-03-06 08:40)
DX: K21.00 Gastro-esophageal reflux disease with esophagitis, without bleeding (principal); K31.7 Polyp of stomach and duodenum; K29.70 Gastritis, unspecified, without bleeding
CPT/HCPCS: 43251; 88305; 88312; 88342; A4216; J2405

== ENCOUNTER → 2024-08-08 | Outpatient (CLI) | payer OTHER, SELFPAY ==
--- NOTE | 2024-08-08 12:52 | BI_ITS ---
EXAM: SCRN MAMM (CAD)W/SKINNY BILAT DATE: 08/08/2024 CLINICAL HISTORY: F, Age 64 y/o , SCRN MAMM (CAD)W/SKINNY BILAT No family history. BREAST CANCER RISK ASSESSMENT: Not assessed. TECHNIQUE: Bilateral screening digital breast tomosynthesis with 2D and 3D images. Computer aided detection. COMPARISON: Prior exam(s) dated July 16, 2020.. FINDINGS: TISSUE DENSITY: The breast tissue is composed of scattered area of fibroglandular density. Bilateral Breast Mammographic Findings: No significant masses, calcifications or other abnormalities are identified. No suspicious masses, areas of developing architectural distortion, or suspicious calcifications. There has been no significant interval change. BI/SCRN MAMM (CAD)W/SKINNY BILAT IMPRESSION: Right Breast: BIRADS 1 NEGATIVE. Left Breast: BIRADS 1 NEGATIVE. OVERALL FINAL ASSESSMENT: BIRADS 1 NEGATIVE RECOMMENDATION: Routine annual follow-up in 1 Year A letter with findings and recommendations will be mailed to the patient. Reading Location: [place] [address]
--- NOTE | 2024-08-08 12:52 | BD_ITS ---
PROCEDURE: DEXA BONE DENSITY STUDY 08/08/2024 REASON FOR EXAM: F, age 64 y/o . Postmenopausal. TECHNIQUE: DXA scan of the lumbar spine and both hips using make and model. [facility]KS[facility] COMPARISON: Comparison is made with prior study dated July 16, 2020. FINDINGS: BMD and T-SCORES Lumbar spine: 0.897 g/cm2, T-Score -1.4 L1 through L4 Change from prior: Worsening by 8.4% Left femoral neck: 0.548 g/cm2, T-Score -2.7 Femoral neck comparison data not recommended for monitoring change. Left total hip: 0.828 g/cm2, T-Score -0.9 Change from prior: Worsening by 2.6% Right femoral neck: 0.59 cm g/cm2, T-Score -2.3 Femoral neck comparison data not recommended for monitoring change. Right total hip: 0.80 cm g/cm2, T-Score -1.1 Change from prior: Worsening by 3.4% Fracture Risk Calculation: FRAX (10-year Fracture Risk) Score: FRAX scores should never be reported in a patient with osteoporosis on DEXA or for any patient that is on bone medication. The patient doesmeet the pharmacological treatment recommendations for prevention of osteoporosis BD/Dexa Bone Density Study IMPRESSION: OSTEOPOROSIS. Recommend follow-up as clinically warranted. Reading Location: [place] [address]
== END | disposition home or self-care (01) ==
LOC: OPBD 12:50
PROVIDERS: PCP Internal Medicine; Referring Provider Internal Medicine; Visit Provider Internal Medicine
DX: Z13.820 Encounter for screening for osteoporosis (principal); Z78.0 Asymptomatic menopausal state; Z12.31 Encounter for screening mammogram for malignant neoplasm of breast
CPT/HCPCS: 77063; 77067; 77080

== ENCOUNTER → 2024-08-31 | Outpatient (CLI) | payer OTHER, SELFPAY ==
[2024-08-31 10:51] LABS: Absolute Neutrophil Count 2.2 X10^3/uL (2.0-7.7); Basophil# 0.05 X10^3/uL; Basophil% 1.1 % (0-1); Eosinophil# 0.17 X10^3/uL; Eosinophils% 3.9 % (0-5); Hematocrit 41.4 % (37-47); Hemoglobin 13.8 g/dL (12.0-15.0); Lymphocyte % 36.5 % (19-41); Mean Corp Hgb Conc 33.3 g/dL (32-36); Mean Corpuscular Hgb 31.7 pg (27.0-32.0); Mean Platelet Vol. 9.6 fl (6.2-12.0); Monocyte# 0.39 X10^3/uL; Monocyte% 8.9 % (0-10); NRBC Flagged by Analyzer 0 % (0-5); Neutrophil # 2.16 X10^3/uL (2.7-7.7); Neutrophil % 49.4 % (47-70); Platelet Count 256 K/mm3 (150-450); RBC Distribution Width CV 13.8 % (11.6-14.6); RBC Distribution Width SD 48.3 fl (35.1-43.9); Red Blood Count 4.36 M/mm3 (4.2-5.4); White Blood Count 4.4 K/mm3 (4.4-11.0)
[2024-08-31 11:25] LABS: Anion Gap 9 (5-15); BUN 14 mg/dL (4-19); BUN/Creat Ratio 15.1 RATIO (10-20); Calcium,Total 9.2 mg/dL (7.6-11.0); Carbon Dioxide 25.6 mmol/L (21.0-32.0); Chloride 103 mmol/L (98-108); Cholesterol 261 mg/dL (<=200); EST Glomerular Filtration Rate 71 (>60); Glucose 94 mg/dL (70-99); High Density Lipoprotein 62 mg/dL; Low Density Lipoprotein Calc. 182 mg/dL; Potassium 4.4 mmol/L (3.3-5.1); Sodium Level 138 mmol/L (133-145); Triglycerides 85 mg/dL; Very Low Density Lipoprotein 17 mg/dL (5-40); cholesterol:hdl ratio screen 4.22
== END | disposition home or self-care (01) ==
LOC: LAB 10:19
PROVIDERS: PCP Internal Medicine; Referring Provider Internal Medicine; Visit Provider Internal Medicine
DX: D72.819 Decreased white blood cell count, unspecified (principal); N18.31 Chronic kidney disease, stage 3a; E78.5 Hyperlipidemia, unspecified
CPT/HCPCS: 36415; 80048; 80061; 85025

== ENCOUNTER → 2025-01-15 | Outpatient (CLI) | payer OTHER, SELFPAY ==
--- NOTE | 2025-01-15 14:08 | CDU_ITS ---
Reason For Study Reason For Study: Acute CVA Rt. Velocities/BP Lt. Velocities/BP Prox CCA 67.4/16.3 cm/sec. Prox CCA 65.6/16.2 cm/sec. Mid CCA 71.1/20.1 cm/sec. Mid CCA 67.4/16.8 cm/sec. Dist CCA 63.6/17.3 cm/sec. Dist CCA 64.1/25.6 cm/sec. Prox ICA 55.3/17.9 cm/sec. Prox ICA 48.7/15.7 cm/sec. Mid ICA 56.3/16.9 cm/sec. Mid ICA 56.4/23.4 cm/sec. Dist ICA 46.1/17.6 cm/sec. Dist ICA 69.5/27.8 cm/sec. Rt. ICA/CCA = 0.8. Lt. ICA/CCA = 1.0. Prox ECA 94.9/13.5 cm/sec. Prox ECA 54.2/10.2 cm/sec. Rt. Vert. 31.5/9.7 cm/sec. Lt. Vert. 40.9/13.9 cm/sec. Right Extracranial There is intimal thickening but no significant atherosclerotic plaque noted in the right common carotid artery. There is intimal thickening but no significant atherosclerotic plaque noted in the right internal carotid artery. There is intimal thickening but no significant atherosclerotic plaque noted in the right external carotid artery. The right external carotid artery is tortuous. Antegrade flow is noted in the right vertebral artery. Left Extracranial There is intimal thickening but no significant atherosclerotic plaque noted in the left common carotid artery. There is intimal thickening but no significant atherosclerotic plaque noted in the left internal carotid artery. The left internal carotid artery is very tortuous. There is intimal thickening but no significant atherosclerotic plaque noted in the left external carotid artery. Antegrade flow is noted in the left vertebral artery. Procedure Carotid Duplex 76820. This is a Carotid Duplex examination using B-mode, color flow and specral Doppler. Exam performed in department. VL/Carotid Duplex Ultrasound Interpretation Summary Normal right extracranial internal carotid. Normal left extracranial internal carotid. Patent and antegrade vertebrals bilaterally. Ordering Physician: Leatha Dejesus Referring Physician: Leatha Dejesus Performed By: Tiara Clements RVT
== END | disposition home or self-care (01) ==
PROVIDERS: PCP Internal Medicine; Referring Provider Internal Medicine; Visit Provider Internal Medicine
DX: Z13.6 Encounter for screening for cardiovascular disorders (principal); Z86.73 Personal history of transient ischemic attack (TIA), and cerebral infarction without residual deficits
CPT/HCPCS: 93880

== ENCOUNTER → 2025-01-22 | Outpatient (CLI) | payer OTHER, SELFPAY ==
--- NOTE | 2025-01-22 14:02 | ECHOD_ITS ---
Reason For Study Reason For Study: CVA Procedure This was a 2D Doppler, Color Flow transthoracic echocardiogram. Exam performed in department. Left Ventricle Normal LV size. Left ventricular systolic function is normal. The left ventricular ejection fraction is 65 %. No regional wall motion abnormalities noted. Right Ventricle Normal RV size. Normal systolic function. Atria Normal left atrium. Normal right atrium. Bubble contrast study is positive for PFO. Mitral Valve Normal mitral valve. Tricuspid Valve Normal tricuspid valve. Mild (1+) tricuspid valve insufficiency. Pulmonary artery systolic pressure is 20 mmHg. Aortic Valve Trisinus/trileaflet aortic valve. Pulmonic Valve Normal pulmonic valve. Great Vessels Normal aortic root. The pulmonary artery is normal size. Inferior vena cava collapse with respiration. Pericardium/Pleural No pericardial effusion. Medication 22 gauge I.V. with prn adaptor inserted into right arm. Performed a rapid injection of agitated mix of 9 cc saline and 1cc air to assess for atrial septal defect. MMode/2D Measurements & Calculations LVIDd: 4.0 cm IVSd: 1.0 cm LVOT diam: 1.8 cm LVIDs: 2.4 cm LVPWd: 0.85 cm RVDd: 2.5 cm FS: 40.0 % LVOT area: 2.6 cm2 asc Aorta Diam: 3.5 cm LAV(MOD-bp): 26.8 ml LVAd ap4: 16.6 cm2 LAV(MOD-bp) Indexed: 15.4 ml/m2 LVLd ap4: 7.0 cm LAV(MOD-sp2): 38.9 ml EDV(MOD-sp4): 32.2 ml LAV(MOD-sp4): 17.6 ml EDV(sp4-el): 33.3 ml LVAs ap4: 8.7 cm2 LVLs ap4: 5.7 cm ESV(MOD-sp4): 11.0 ml ESV(sp4-el): 11.3 ml EF(MOD-sp4): 65.9 % EF(sp4-el): 66.1 % LVAd ap2: 14.8 cm2 SV(MOD-sp4): 21.2 ml SV(MOD-sp2): 17.4 ml LVLd ap2: 7.0 cm SI(MOD-sp4): 12.2 ml/m2 SI(MOD-sp2): 10.0 ml/m2 EDV(MOD-sp2): 25.9 ml EDV(sp2-el): 26.4 ml LVAs ap2: 7.3 cm2 LVLs ap2: 5.5 cm ESV(MOD-sp2): 8.5 ml ESV(sp2-el): 8.3 ml EF(MOD-sp2): 67.1 % SV(sp4-el): 22.0 ml Ao sinus diam: 3.[address] Junction: 2.6 cm LA dimension(2D): 3.0 cm LA A4 area: 9.3 cm2 RA A4 area: 8.8 cm2 TAPSE: 1.7 cm Time Measurements MV dec time: 0.19 sec Doppler Measurements & Calculations MV E max ezekiel: 76.7 cm/sec Lat Peak E' Eezkiel: 11.8 cm/sec Med Peak E' Ezekiel: 8.1 cm/sec MV A max ezekiel: 73.5 cm/sec E/E' lat: 6.5 E/E' med: 9.4 MV E/A: 1.0 MV dec slope: 395.2 cm/sec2 Ao V2 max: 114.9 cm/sec LV V1 max: 95.8 cm/sec Ao max P.3 mmHg LV V1 max P.7 mmHg Ao V2 mean: 76.4 cm/sec LV V1 mean P.0 mmHg Ao mean P.7 mmHg LV V1 mean: 66.7 cm/sec Ao V2 VTI: 26.6 cm LV V1 VTI: 21.9 cm AV (velocity ratio): 0.82 MARYAM(I,D): 2.1 cm2 MARYAM(V,D): 2.1 cm2 SV(LVOT): 55.8 ml PA V2 max: 75.9 cm/sec TR max ezekiel: 196.9 cm/sec TR max P.5 mmHg ECHO/Echo Complete Interpretation Summary Normal LV size. Left ventricular systolic function is normal. The left ventricular ejection fraction is 65 %. Bubble contrast study is positive for PFO. Ordering Physician: Leatha Dejesus Referring Physician: Leatha Dejesus Performed By: Venus Bland RDCS
== END | disposition home or self-care (01) ==
PROVIDERS: PCP Internal Medicine; Referring Provider Internal Medicine; Visit Provider Internal Medicine
DX: I63.9 Cerebral infarction, unspecified (principal); I07.1 Rheumatic tricuspid insufficiency
CPT/HCPCS: 93306; A4216

== ENCOUNTER → 2025-02-20 | Outpatient (CLI) | payer OTHER, SELFPAY ==
--- NOTE | 2025-02-20 09:04 | VDLE_ITS ---
Reason For Study VL/Venous Duplex US, Unilateral
== END | disposition home or self-care (01) ==
PROVIDERS: PCP Internal Medicine; Referring Provider Internal Medicine Cardiovascular Disease; Visit Provider Internal Medicine Cardiovascular Disease
DX: M79.89 Other specified soft tissue disorders (principal); I70.92 Chronic total occlusion of artery of the extremities; Q21.12 Patent foramen ovale
CPT/HCPCS: 93971

== ENCOUNTER → 2025-02-28 | Outpatient (CLI) | payer OTHER, SELFPAY | END | disposition home or self-care (01) | PROVIDERS: PCP Internal Medicine; Referring Provider Internal Medicine Cardiovascular Disease; Visit Provider Internal Medicine Cardiovascular Disease | DX: I63.9 Cerebral infarction, unspecified (principal); Q21.12 Patent foramen ovale | CPT/HCPCS: 93225; 93226 ==